=== PATIENT | female | born 1990 | race Hispanic/Latino ===

== ENCOUNTER 2017-06-16 08:15 | Emergency (ER) | payer SELFPAY ==
[2017-06-16 09:19] LABS: Bilirubin Negative (Negative); Blood, Urine Negative (Negative); Clarity CLOUDY (Clear); Glucose, Urine (Dipstick) Negative (Negative); Leukocyte Moderate (Negative); Nitrite Negative (Negative); Protein, Urine (Dipstick) 30 mg/dL (Neg-Trace); Specific Gravity, Urine 1.015 (1.002-1.036)
[2017-06-16 09:20] LABS: Bacteria/HPF 2+ HPF (None Seen); Hyaline Casts/LPF 0-3 HYALINE CAST LPF (0-3 Hyaline); Pregnancy Test - Urine (BHCG) Negative (Negative); Pregu Control Background? CLEAR/WHITE (CLR/WHITE); Pregu Control Bar Appear? YES (CONTROL BAR); Specific Gravity 1.015 (1.002-1.036); WBC/HPF 21-50 HPF (0-3)
[2017-06-16 09:32] LABS: RBC/HPF 0-3 HPF (0-3)
== END 2017-06-16 10:08 | disposition home or self-care (01) ==
LOC: ERS 08:15
DX: M54.5 Low back pain (principal); K21.9 Gastro-esophageal reflux disease without esophagitis; N39.0 Urinary tract infection, site not specified
CPT/HCPCS: 81003; 81015; 81025; 99283

== ENCOUNTER 2017-10-02 08:09 | Emergency (ER) | payer SELFPAY | END 2017-10-02 09:14 | disposition home or self-care (01) | LOC: ERS 08:09 | DX: M54.2 Cervicalgia (principal); M79.89 Other specified soft tissue disorders; M54.9 Dorsalgia, unspecified; M79.642 Pain in left hand; M79.641 Pain in right hand; E03.9 Hypothyroidism, unspecified; Z79.899 Other long term (current) drug therapy | CPT/HCPCS: 99283 ==

== ENCOUNTER 2018-08-30 19:58 | Day surgery (SDC) | payer OTHER ==
[2018-08-30 20:32] VITALS: BP 121/59; TEMP 98.3; BMI 49.1
[2018-08-30 21:13] LABS: Bilirubin Negative (Negative); Blood, Urine Negative (Negative); Clarity CLOUDY (Clear); Glucose, Urine (Dipstick) Negative (Negative); Leukocyte Moderate (Negative); Nitrite Negative (Negative); Protein, Urine (Dipstick) Negative (Neg-Trace); Specific Gravity, Urine 1.026 (1.002-1.036)
[2018-08-30 21:15] LABS: Bacteria/HPF 1+ HPF (None Seen); Pathc Cast-AUWi Flag 1.63 (0-2.49); WBC/HPF 21-50 HPF (0-3)
[2018-08-30 21:22] LABS: RBC/HPF 0-3 HPF (0-3)
[2018-08-30 21:23] LABS: Hyaline Casts/LPF NONE SEEN LPF (0-3 Hyaline)
[2018-08-30 21:36] LABS: FFN Internal QC Analyzer PASS (PASS); FFN Internal QC Cassette PASS (PASS); Fetal Fibronectin Negative (Negative)
--- NOTE | 2018-08-31 08:48 | SS ---
DATE OF ADMISSION: 08/30/2018 DATE OF DISCHARGE: 08/30/2018 REGULAR PHYSICIAN: Thu Arguello MD EVALUATING PHYSICIAN: Malik Ortiz MD CHIEF COMPLAINT: Irregular contractions at home. HISTORY OF PRESENT ILLNESS: Ms. Paige is a 28-year-old , G6, P4, AB1 with an estimated date of confinement of 11/01/2018, who presents complaining of irregular contractions throughout the day today. She denies vaginal bleeding or ruptured membranes. She also denies change in bowel or bladder habits. Her care has been with Dr. Arguello, and she denies complications. PAST OBSTETRICAL HISTORY: Includes four vaginal deliveries at term and one miscarriage. PAST MEDICAL HISTORY: Hypothyroidism. CURRENT MEDICATIONS: 1. vitamins. 2. Synthroid 150 mcg per day. ALLERGIES: NO KNOWN ALLERGIES. SOCIAL HISTORY: Denies tobacco, alcohol, or drug use. FAMILY HISTORY: Noncontributory. REVIEW OF SYSTEMS: Denies nausea, vomiting, fever, chills, vaginal bleeding, or ruptured membranes. PHYSICAL EXAMINATION: VITAL SIGNS: Blood pressure is 121/59. The remainder of her vital signs are stable. She is afebrile. GENERAL: She is pleasant. She is in no acute distress. ABDOMEN: Soft, nontender, and gravid. heart rate tracing is stable. No significant uterine contractions are seen. PELVIC: Shows the cervix to be closed with the presenting part high. LABORATORY DATA: Urinalysis returns with a specific gravity of 1.026. It is cloudy with moderate leukocytes, negative nitrites, negative protein, negative glucose, and trace ketones. Microscopic shows 1 to 3 rbc's, 21 to 50 wbc's with 4 to 6 squamous cells and 1+ bacteria. Her fibronectin is negative. ASSESSMENT: 1. 31-week intrauterine . 2. No evidence of labor. 3. Suspect urinary tract infection. PLAN: The patient will be discharged to home. She was told to push p.o. fluids at home and she was given a prescription for Keflex 500 mg one p.o. 4 times a day for a week. She voiced understanding of her discharge instructions and states that she has a followup appointment with Dr. Arguello in 2 weeks. Job ID: [id number]
== END 2018-08-30 22:06 | disposition home or self-care (01) ==
LOC: L&D/OP 19:58
PROVIDERS: ATTEND Family Medicine
DX: O47.03 False labor before 37 completed weeks of gestation, third trimester (principal); O99.283 Endocrine, nutritional and metabolic diseases complicating pregnancy, third trimester; E03.9 Hypothyroidism, unspecified; Z3A.31 31 weeks gestation of pregnancy; Z79.899 Other long term (current) drug therapy
CPT/HCPCS: 81001; 82731; 87086; 99284

== ENCOUNTER 2018-10-20 11:14 | Inpatient (IN) | payer OTHER ==
[~2018-10-20 11:14] MED LIST: Bupivacaine/Epinephrine 0.25% 30 ML VIAL ONE
[2018-10-20 11:45] VITALS: BMI 51.5
[2018-10-20] MEDS ORDERED: Ondansetron PF 4 MG/2 ML Vial IVP PRN ×2 (12:05→21:10)
[2018-10-20] MEDS ORDERED: HYDROcodone/Acetaminophen 5/325 mg Tablet PO PRN (12:05)
[2018-10-20] MEDS ORDERED: Ibuprofen 800 MG TAB PO PRN (12:05)
[2018-10-20] MEDS ORDERED: Promethazine HCl 25 MG/ML VIAL IM PRN ×2 (12:05→21:10)
[2018-10-20] MEDS ORDERED: Butorphanol Tartrate 1 MG/ML VIAL SLOW IVP PRN (12:05)
[2018-10-20] MEDS ORDERED: Lidocaine 1% (PF) 30 ML VIAL SC PRN (12:05)
[2018-10-20] MEDS ORDERED: Methylergonovine 0.2 MG/ML VIAL IM PRN (12:05)
[2018-10-20] MEDS ORDERED: Acetaminophen 500 MG TAB PO PRN (12:05)
[2018-10-20] MEDS ORDERED: Carboprost 250 MCG/ML AMP IM PRN (12:05)
[2018-10-20] MEDS ORDERED: Misoprostol 200 MCG TAB PR PRN (12:05)
[2018-10-20] MEDS ORDERED: NS / Oxytocin 40 units/1000ml 1,000 ML IV PRN (12:05)
[2018-10-20] MEDS ORDERED: Penicillin G Potassium 5 MILL.UNITS in Sodium Chloride 0.9% 100 ML IVPB SCH (12:15)
[2018-10-20] MEDS: Lactated Ringer's 1,000 ML IV SCH ×3 (12:22→20:55)
[2018-10-20] MEDS: NS w/ Oxytocin 10 units 500 ML IV SCH (12:23)
[2018-10-20 12:43] LABS: Hemoglobin 10.5 g/dL (12.0-16.0); Mean Corpuscular HGB CONC 33.2 g/dL (32.0-36.0); Mean Corpuscular Hemoglobin 25.9 pg (27.0-31.0); Mean Platelet Volume 8.1 fL (7.4-10.4); Platelet Count 243 thou/uL (130-400); Red Blood Cell (RBC) Count 4.05 mill/uL (4.20-5.40); White Blood Cell (WBC) Count 8.8 thou/uL (4.8-10.8)
[2018-10-20 13:05] LABS: ALT (SGPT) 15 U/L (8-55); AST (SGOT) 17 U/L (5-34); Albumin 3.6 g/dL (3.5-5.0); Alkaline Phosphatase 126 U/L (40-150); Anion Gap 12 mmol/L (10-20); BUN (Urea Nitrogen) 5 mg/dL (7.0-18.7); Bilirubin, Total 0.5 mg/dL (0.2-1.2); Calc. Creatinine Clearance 260 mL/min (70-130); Calcium 9.3 mg/dL (7.8-10.44); Carbon Dioxide 22 mmol/L (22-29); Chloride 105 mmol/L (98-107); Estimated GFR-MDRD Greater than 90; Globulin 3.3 g/dL (2.4-3.5); Glucose 75 mg/dL (70-105); Potassium 4.1 mmol/L (3.5-5.1); Protein, Total 6.9 g/dL (6.0-8.3); Sodium 135 mmol/L (136-145)
[2018-10-20 13:23] LABS: Syphilis Antibody Nonreactive (Nonreactive); Syphilis Antibody Index 0.04 S/CO (<1.00 Non-Reactive)
[2018-10-20 13:24] LABS: HBSAg Index 0.26 S/CO (0-0.99); Hep B Surf Ag Non-Reactive S/CO (NonReactive)
--- NOTE | 2018-10-20 15:36 | PDOC.LDHP ---
Labor and Delivery H&P Chief complaint: other (Elevated BP in office, IOL) HPI: 28 yo scheduled for IOL at 39 weeks next week presented tot office for routine OB F/U and found to have elevated BP. 140's/90's. Given term gestation we decided to induce her labor and she was sent to L&D for pitocin. Current gestational age (weeks): 38 Due date: 11/01/18 Dating criteria: last menstrual period Grav: 6 Para: 4 Current complications: gestational hypertension Abnormal US findings: No Past Medical History: Hypothyroidism - on levothyroxine 150mcg daily Current medications: pre- vitamins Previous surgical history: cholecystectomy (2013) Allergies/Adverse Reactions: Allergies Allergy/AdvReac Type Severity Reaction Status Date / Time No Known Allergies Allergy Verified 10/20/18 11:38 Social history: none - Physical Exam Vital signs reviewed and normal: yes General: NAD, resting Heart: RRR Lungs: CTAB Abdomen: NTTP Extremeties: trace edema FHT: category 2, variable decelerations, variability present - Vaginal Exam cm dilated: 1 Effacement: 25% Station: -2 - OB Labs Blood type: O RH: positive Antibody Screen: negative HIV: negative RPR: negative HEPSAg: negative 1 hour GCT: positive 3 hour GTT: 79/144/111/101 GBS: positive Urine drug screen: not done Rubella: immune - Assessment L&D Assessment: medically indicated induction (Elevated BP, 1+ proteinuria - mild preeclampsia at term.) - Plan Plan: admit to L&D, GBS antibiotic prophylaxis, informed consent obtained, anesthesia consult for pain management
[2018-10-20] MEDS ORDERED: Magnesium Sulfate 20 gm/500 ml 20 GM/500 ML BAG ONE (15:51)
--- NOTE | 2018-10-20 15:52 | PDOC.EVN ---
Event Note - Event Note Event Note: Called by RN for FHT decelerations. Initially started pitocin at 2 units and was kamila every 2-3 minutes. Began having late decelerations, some deep to 90's. Moderate variability throughout. Pitocin was stopped and patient repositioned and IV fluid bolus given and O2 applied. Decelerations became less frequent but not fully resolved. Now more variable in nature. No longer kamila. Since unable to tolerate pitocin at this time we will attempt balloon dilation - Cook's balloon placed without complication. FHT after placement 150, moderate variability, Category II, no accelerations and rare variable decels. BP remains in mild range - no severe measurements at this time. We also discussed the possibility of needing if FHT unable to tolerate labor. Pt does not want that if at all avoidable. We discussed that we will try the balloon but if baby does not tolerate then will proceed with C/ S at that time. Currently FHT category II. While I was here to see the patient her blood pressure became elevated into the severe range - started magnesium per protocol. Last BP 178/85.
[2018-10-20] MEDS: Penicillin G 2.5 MILL.units 2.5 MILL.UNITS in Premix Bag 1 BAG IVPB SCH ×2 (16:35→20:27)
[2018-10-20] MEDS ORDERED: Calcium Gluc 4.6 MEQ/10 ML (100 MG/ML) SLOW IVP PRN (19:13)
[2018-10-20] MEDS: Labetalol HCl 100 MG/20 ML VIAL SLOW IVP PRN (19:21)
[2018-10-20] MEDS ORDERED: Magnesium Sulfate 20 GM/WATER 500 ML BAG IVPB SCH (19:30)
--- NOTE | 2018-10-20 19:31 | PDOC.EVN ---
Event Note - Event Note Event Note: BP continues to be high despite magnesium. Labetolol 20mg IV PRN for SBP>170 or DBP>110. Patient requesting epidural. [place] not tracing. FHT 150, moderate variability, some accels, variable decels periodically - category II. SVE: -, unable to assess station due to cooks balloon in place. Proceed with epidural.
[2018-10-20] MEDS ORDERED: Fentanyl 4 mcg/Bup 0.1% Cadd 100 ML ONE (19:33)
[2018-10-20] MEDS ORDERED: Acetaminophen 325 MG TAB PO PRN (21:10)
[2018-10-20] MEDS ORDERED: Lactated Ringer's 500 ML IV PRN (21:10)
[2018-10-20] MEDS ORDERED: Naloxone HCl 0.4 mg/ml Vial IVP PRN ×2 (21:10)
[2018-10-20] MEDS ORDERED: diphenhydrAMINE 50 MG/ML VIAL IVP PRN (21:10)
[2018-10-20] MEDS ORDERED: ePHEDrine/0.9% NaCl/PF SYRINGE 50 mg/10 ml SLOW IVP PRN (21:10)
[2018-10-20] MEDS ORDERED: Communication Order-Pharmacy FS SCH (21:15)
[2018-10-20] MEDS ORDERED: Fentanyl 4 mcg/Bupivacaine 0.1% Cassette 100 ML EPIDURAL SCH (21:15)
[2018-10-21] MEDS: Penicillin G 2.5 MILL.units 2.5 MILL.UNITS in Premix Bag 1 BAG IVPB SCH ×4 (00:59→14:31)
[2018-10-21] MEDS: Magnesium Sulfate 20 gm/500 ml 20 GM/500 ML BAG IVPB SCH ×3 (01:11→22:12)
[2018-10-21] MEDS ORDERED: Fentanyl 4 mcg/Bup 0.1% Cadd 100 ML ONE (05:18)
[2018-10-21] MEDS: Labetalol HCl 100 MG/20 ML VIAL SLOW IVP PRN (08:15)
[2018-10-21] MEDS: NS w/ Oxytocin 10 units 500 ML IV SCH (09:00)
[2018-10-21] MEDS ORDERED: Bicitra 30 ML UDCUP ONE (09:24)
[2018-10-21] MEDS ORDERED: Azithromycin 500 MG in Sodium Chloride 0.9% 250 ML 250 ML IVPB SCH (10:00)
[2018-10-21] MEDS ORDERED: Lidocaine 2% MPF 10 ML AMP (For Epidural Use) ONE (10:01)
[2018-10-21] MEDS ORDERED: Fentanyl 100 MCG/2 ML VIAL ONE (10:01)
--- NOTE | 2018-10-21 10:01 | PDOC.EVN ---
Event Note - Event Note Event Note: This AM after consultation with Dr. Bangura we attempted to restart pitocin. SVE at that time was /-2. We discussed iwth the patient that there was a possibility that her baby would not tolerate what was essentially a contraction stress test and that we would proceed with at that time. After starting pitocin the baby began having recurrent late decelerations. At that time, in consult with Dr. Bangura, decision was made to proceed with primary C/ S for distress, intolerance to labor. I came to L&D and discussed with the patient and she understands and agrees with the plan. Anesthesia notified.
[2018-10-21] MEDS ORDERED: Oxytocin 10 UNITS/ML VIAL ONE ×2 (10:37→11:07)
[2018-10-21] MEDS ORDERED: MORPHINE 5 MG/10 ML PF VIAL ONE (10:47)
[2018-10-21 10:58] LABS: Actual Bicarbonate (HCO3a) 24.9 mEq/L (22-28); Analyzer IN Cardio OR; Base Excess (BEa) -3.6 mEq/L (-2.0 to +3.0)
[2018-10-21] MEDS ORDERED: Ketorolac Tromethamine 30 MG/ML VIAL IVP PRN (11:02)
[2018-10-21] MEDS ORDERED: Naloxone HCl 0.4 mg/ml Vial IVP PRN ×2 (11:02)
[2018-10-21] MEDS ORDERED: Naloxone HCl 0.4 mg/ml Vial IV PRN (11:02)
[2018-10-21] MEDS ORDERED: Ondansetron HCl/PF 4 MG/2 ML Vial IVP PRN (11:02)
[2018-10-21] MEDS ORDERED: HYDROmorphone 2 MG/ML VIAL SLOW IVP PRN (11:02)
[2018-10-21] MEDS ORDERED: Ondansetron PF 4 MG/2 ML Vial IVP PRN ×2 (11:02→14:37)
[2018-10-21] MEDS ORDERED: L&D-Morphine 4 MG/ML VIAL SLOW IVP PRN (11:02)
[2018-10-21] MEDS ORDERED: Promethazine HCl 25 MG/ML VIAL IM PRN (11:02)
[2018-10-21] MEDS ORDERED: diphenhydrAMINE 50 MG/ML VIAL IVP PRN (11:02)
[2018-10-21] MEDS ORDERED: Meperidine HCl/PF 25 MG/ML VIAL SLOW IVP PRN (11:02)
[2018-10-21] MEDS ORDERED: Promethazine HCl 25 MG SUPP PR PRN (11:02)
[2018-10-21] MEDS ORDERED: Communication Order-Pharmacy FS SCH (11:15)
[2018-10-21] MEDS ORDERED: Ketorolac Tromethamine 30 MG/ML VIAL IVP SCH (11:15)
[2018-10-21] MEDS ORDERED: Ketorolac Tromethamine 30 MG/ML VIAL ONE (13:41)
[2018-10-21] MEDS ORDERED: Metoclopramide HCl 10 MG/2 ML VIAL ONE (13:41)
[2018-10-21] MEDS ORDERED: Labetalol HCl 100 MG/20 ML VIAL ONE (13:41)
[2018-10-21] MEDS ORDERED: Ondansetron PF 4 MG/2 ML Vial ONE (13:41)
[2018-10-21] MEDS ORDERED: Lidocaine 2% PF 5 ML VIAL ONE (13:41)
[2018-10-21] MEDS ORDERED: Lanolin Ointment 7 GM TUBE TOP PRN (14:37)
[2018-10-21] MEDS ORDERED: Calcium Gluconate 4.6 MEQ in Sodium Chloride 0.9% 100 ML IVPB PRN (14:37)
[2018-10-21] MEDS ORDERED: diphenhydrAMINE 25 MG CAP PO PRN (14:37)
[2018-10-21] MEDS ORDERED: Bisacodyl 10 MG SUPP PR PRN (14:37)
[2018-10-21] MEDS ORDERED: Adacel (T-DAP) 0.5 ML SYRINGE IM ONE (14:37)
[2018-10-21] MEDS ORDERED: Simethicone Chewable 80 MG TAB PO PRN (14:37)
[2018-10-21] MEDS: Lactated Ringer's 1,000 ML IV SCH (14:47)
[2018-10-21] MEDS ORDERED: HYDROcodone/Acetaminophen 5/325 mg Tablet PO PRN (15:30)
[2018-10-21] MEDS: HYDROcodone/Acetaminophen 5/325 mg Tablet PO PRN (15:40)
--- NOTE | 2018-10-21 20:10 | OP ---
DATE OF PROCEDURE: 10/20/2018 PREOPERATIVE DIAGNOSES: 1. Non-reassuring status. 2. Intrauterine at 38 weeks. 3. Preeclampsia. POSTOPERATIVE DIAGNOSES: 1. Non-reassuring status. 2. Intrauterine at 38 weeks. 3. Preeclampsia. PROCEDURE PERFORMED: Primary low transverse section. ANESTHESIA: Epidural. QUANTITATIVE BLOOD LOSS: 300 mL. COMPLICATIONS: None. CONDITION: Stable to recovery room. SPECIMENS: Placenta to pathology and cord blood for blood gas analysis. FINDINGS: Female infant delivered at 10:34 a.m. with Apgars of 8 and 10 and a weight of 2526 g. DESCRIPTION OF PROCEDURE: The patient is a 28-year-old multiparous female with an intrauterine at 38 weeks and 3 days, who was admitted by her primary OB, Dr. Thu Arguello, for induction of labor secondary to preeclampsia. The patient was started on Pitocin for induction of labor and appeared to be intolerant having repetitive late decelerations. Followed by discontinuation of the Pitocin, the patient received a Brambila bulb with Cook balloon to assist with the induction process. This morning, the Pitocin was started once again and again the fetus immediately started having late decelerations with every contraction. Given these findings, recommendations were made to the patient and family for primary as the fetus will not tolerate labor. With her permission, we proceeded with a primary section. The patient was placed in dorsal supine position in the leftward tilt. She was prepared and draped in normal sterile fashion. After ensuring that the epidural anesthetic was working properly, surgery was begun with a Pfannenstiel incision. This was carried down to the level of the fascia. Fascia was incised and extended laterally with Briseno scissors. The fascia was then sharply and bluntly dissected off the underlying rectus muscles both superiorly and inferiorly. The rectus muscles were bluntly dissected down the midline and the peritoneum was entered into bluntly. This defect was extended laterally in blunt manner. Uterus was identified to be free of any adhesions. The bladder and lower uterine segment were extremely deep in the pelvis, and a hysterotomy was created in the mid region of the uterus, making the incision much thicker than usual. The head was present at the site of the incision and was delivered to sterile field without complication. The cord was clamped and cut, and the infant was handed off to waiting attendant. The cord segment was cut for blood gas analysis and the placenta was then delivered with uterine massage. Of note, the placenta was noted to be quite small with a small cord consistent with the small baby. The uterus was then cleared of all clot and debris and given the thickness of the uterine wall, it was closed in two layers with underlying locking layer with #1 PDS followed by an imbricating layer closing the upper portion of the hysterotomy and the serosa. Good hemostasis was noted. Of note, there was less than average blood loss. The ovaries and tubes were inspected. The right ovary appeared to be about half the size of the left ovary. Otherwise, both appeared normal. With re-inspection of the hysterotomy and noted hemostasis, the Kurtis O, which had been used for retraction, was removed and the fascia was then closed in a running fashion with 0 PDS. The subcutaneous fat was then closed with plain gut in 2 layers and the skin was closed with 4-0 Monocryl in a running fashion. The patient was then taken to recovery room in stable condition. Job ID: [id number]
[2018-10-22] MEDS ORDERED: Ketorolac Tromethamine 30 MG/ML VIAL ONE (05:41)
[2018-10-22] MEDS: Docusate Calcium (SURFAK) 240 MG CAP PO SCH ×3 (05:45→19:48)
[2018-10-22] MEDS: Ferrous Sulfate 325 MG TAB PO SCH ×3 (05:45→19:46)
[2018-10-22] MEDS: Magnesium Sulfate 20 gm/500 ml 20 GM/500 ML BAG IVPB SCH (09:24)
[2018-10-22 09:42] LABS: Hemoglobin 9.4 g/dL (12.0-16.0); Mean Corpuscular HGB CONC 34.1 g/dL (32.0-36.0); Mean Corpuscular Hemoglobin 26.5 pg (27.0-31.0); Mean Corpuscular Volume 77.6 fL (78.0-98.0); Mean Platelet Volume 7.6 fL (7.4-10.4); Platelet Count 230 thou/uL (130-400); RBC Distribution Width 14.4 % (11.5-14.5); Red Blood Cell (RBC) Count 3.55 mill/uL (4.20-5.40)
[2018-10-22] MEDS: HYDROcodone/Acetaminophen 5/325 mg Tablet PO PRN ×2 (12:48→19:46)
--- NOTE | 2018-10-22 21:23 | PDOC.PP ---
Post Progress Note Post Day #: 1 Subjective: Doing well. Still on magnesium. Slept some. Not ambulatory yet. Szymanski still in place. PO intake tolerated: yes Flatus: no Ambulation: no Vital Signs (12 hours) Temp Pulse Resp BP 10/22/18 15:45 98.1 F 77 18 127/58 L Weight Weight 273 lb - Physical Examination General: NAD Cardiovascular: no m/r/g, RRR Respiratory: clear to auscultation bilaterally, non-labored breathing Abdominal: + bowel sounds, lochia, no distention, appropriately TTP Skin: CS incision dry & intact Neurological: no gross focal deficits Result Diagrams: 10/22/18 09:32 10/20/18 12:34 Additional Labs: Post Labs Blood Type O POSITIVE 10/20/18 12:34 Hep Bs Antigen Non-Reactive S/CO (NonReactive) 10/20/18 12:33 (1) delivery delivered Code(s): O82 - ENCOUNTER FOR DELIVERY WITHOUT INDICATION Status: Acute (2) Severe pre-eclampsia Code(s): O14.10 - SEVERE PRE-ECLAMPSIA, UNSPECIFIED TRIMESTER Status: Acute - Assessment/Plan Routine post-op care Continue magnesium for 24 hours - september D/C after 1030 AM today BP coming down and urine output increasing D/C szymanski later today Ambulate Advance diet
[2018-10-23] MEDS: Docusate Calcium (SURFAK) 240 MG CAP PO SCH ×2 (09:27→21:22)
[2018-10-23] MEDS: Ferrous Sulfate 325 MG TAB PO SCH ×2 (09:27→21:23)
--- NOTE | 2018-10-23 15:42 | PDOC.PP ---
Post Progress Note Post Day #: 2 Subjective: Doing well. Mom is ready for D/C but baby is high intermediate risk for bilirubin - will hold off on D/C until tomorrow so we can recheck baby's bili. PO intake tolerated: yes Flatus: yes Ambulation: yes Vital Signs (12 hours) Temp Pulse Resp BP Pulse Ox 10/23/18 11:00 98.3 F 80 18 144/76 H 10/23/18 08:00 98.2 F 85 16 135/76 98 10/23/18 03:45 98.1 F 84 18 143/73 H Weight Weight 273 lb - Physical Examination General: NAD Cardiovascular: no m/r/g, RRR Respiratory: clear to auscultation bilaterally, non-labored breathing Abdominal: + bowel sounds, lochia, no distention, appropriately TTP Skin: CS incision dry & intact Psychiatric: A&Ox3 Result Diagrams: 10/22/18 09:32 10/20/18 12:34 Additional Labs: Post Labs Blood Type O POSITIVE 10/20/18 12:34 Hep Bs Antigen Non-Reactive S/CO (NonReactive) 10/20/18 12:33 (1) delivery delivered Code(s): O82 - ENCOUNTER FOR DELIVERY WITHOUT INDICATION Status: Acute (2) Severe pre-eclampsia Code(s): O14.10 - SEVERE PRE-ECLAMPSIA, UNSPECIFIED TRIMESTER Status: Acute - Assessment/Plan BP normalized - no need for Rx at D/C Doing well post-op Bottlefeeding Likely D/C in the AM F/U in 2 weeks
[2018-10-23] MEDS: HYDROcodone/Acetaminophen 5/325 mg Tablet PO PRN (18:54)
[2018-10-24] MEDS: HYDROcodone/Acetaminophen 5/325 mg Tablet PO PRN (05:20)
--- NOTE | 2018-10-24 05:35 | PDOC.PP ---
Post Progress Note Post Day #: 3 Subjective: Mom doing well, baby went to NICU overnight for low glucose and seizure like activity. PO intake tolerated: yes Flatus: yes Ambulation: yes Vital Signs (12 hours) Temp Pulse Resp BP 10/24/18 00:10 98.6 F 81 18 138/72 10/23/18 20:55 20 Weight Weight 273 lb - Physical Examination General: NAD Cardiovascular: no m/r/g, RRR Respiratory: clear to auscultation bilaterally, non-labored breathing Abdominal: + bowel sounds, lochia, no distention, appropriately TTP Skin: CS incision dry & intact, no rash Result Diagrams: 10/22/18 09:32 10/20/18 12:34 Additional Labs: Post Labs Blood Type O POSITIVE 10/20/18 12:34 Hep Bs Antigen Non-Reactive S/CO (NonReactive) 10/20/18 12:33 (1) delivery delivered Code(s): O82 - ENCOUNTER FOR DELIVERY WITHOUT INDICATION Status: Acute (2) Severe pre-eclampsia Code(s): O14.10 - SEVERE PRE-ECLAMPSIA, UNSPECIFIED TRIMESTER Status: Acute - Assessment/Plan Doing well Able to D/C today baby will need to stay in NICU until beka releases B&B if mom wants
[2018-10-24] MEDS ORDERED: Levothyroxine 150 MCG TAB PO SCH (06:00)
[2018-10-24 08:03] VITALS: BP 137/76; TEMP 97.9
[2018-10-24] MEDS: Docusate Calcium (SURFAK) 240 MG CAP PO SCH (09:13)
[2018-10-24] MEDS: Ferrous Sulfate 325 MG TAB PO SCH (09:13)
== END 2018-10-24 11:20 | disposition home or self-care (01) | DRG 788 ==
LOC: L&D 11:14 → 3SE 10-22 12:07
PROVIDERS: ADMIT Family Medicine; ATTEND Family Medicine
PROC: 3E033VJ Introduction of Other Hormone into Peripheral Vein, Percutaneous Approach (ICD-10-PCS; 2018-10-20)
PROC: 10D00Z1 Extraction of Products of Conception, Low, Open Approach (ICD-10-PCS; principal; 2018-10-21)
DX: O13.4 Gestational [pregnancy-induced] hypertension without significant proteinuria, complicating childbirth (principal); O14.14 Severe pre-eclampsia complicating childbirth; O99.824 Streptococcus B carrier state complicating childbirth; O76 Abnormality in fetal heart rate and rhythm complicating labor and delivery; O99.284 Endocrine, nutritional and metabolic diseases complicating childbirth; E03.9 Hypothyroidism, unspecified; Z37.0 Single live birth; Z3A.39 39 weeks gestation of pregnancy
CPT/HCPCS: 36415; 51702; 80053; 82805; 83735; 85027; 86780; 86850; 86900; 86901; 87340; 88307; C1726; J0456; J0690; J1885; J2001; J2270; J2405; J2540; J2590; J2765; J3010; J3475; J3490; J7050

== ENCOUNTER 2022-08-18 11:12 | Emergency (ER) | payer OTHER, SELFPAY ==
[2022-08-18] MEDS ORDERED: Famotidine 20 MG TAB ONE (11:47)
[2022-08-18] MEDS ORDERED: EPINEPHrine 1 MG/ML VIAL ONE (11:47)
[2022-08-18 12:04] LABS: #Eosinphils 0.2 thou/uL (0.0-0.7); #Lymphocytes 3.4 thou/uL (1.20-3.40); #Monocytes 0.7 thou/uL (0.11-0.59); #Neutrophils 6.2 thou/uL (1.40-6.50); %Basophils 0.2 % (0.0-1.0); %Lymphocytes 32.1 % (21.0-51.0); %Monocytes 6.8 % (0.0-10.0); Hemoglobin 11.9 g/dL (12.0-16.0); Mean Corpuscular HGB CONC 33.1 g/dL (32.0-36.0); Mean Corpuscular Hemoglobin 26.4 pg (27.0-31.0); Mean Corpuscular Volume 79.9 fl (78.0-98.0); Mean Platelet Volume 8.1 fL (7.4-10.4); Platelet Count 126 10x3/uL (130-400); RBC Distribution Width 13.6 % (11.5-14.5); Red Blood Cell (RBC) Count 4.51 mill/uL (4.20-5.40); White Blood Cell (WBC) Count 10.5 10x3/uL (4.8-10.8)
[2022-08-18 12:29] LABS: ALT (SGPT) 38 U/L (8-55); AST (SGOT) 25 U/L (5-34); Albumin 4.2 g/dL (3.5-5.0); Alkaline Phosphatase 90 U/L (40-110); Anion Gap 10 mmol/L (10-20); BUN (Urea Nitrogen) 17 mg/dL (7.0-18.7); Bilirubin, Total 0.5 mg/dL (0.2-1.2); Calc. Creatinine Clearance 0 mL/min (70-130); Calcium 9.2 mg/dL (7.8-10.44); Carbon Dioxide 28 mmol/L (22-29); Chloride 105 mmol/L (98-107); Estimated GFR 112; Globulin 3.7 g/dL (2.4-3.5); Glucose 99 mg/dL (70-105); Potassium 3.7 mmol/L (3.5-5.1); Protein, Total 7.9 g/dL (6.0-8.3); Sodium 139 mmol/L (136-145)
[2022-08-18 12:40] LABS: Bilirubin Negative (Negative); Blood, Urine Trace (Negative); Clarity Clear (Clear); Glucose, Urine (Dipstick) Normal (Negative); Ketone, Urine Negative (Negative); Leukocyte 250 Leu/uL (Negative); Nitrite Negative (Negative); Protein, Urine (Dipstick) 10 mg/dL (Neg-Trace); Specific Gravity, Urine 1.031 (1.002-1.036); WBC/HPF 0-3 HPF (0-3); pH, Urine 5.5 (5.0-9.0)
[2022-08-18 12:45] LABS: Bacteria/HPF Rare-Few HPF (None Seen); Pregnancy Test - Urine (BHCG) Negative (Negative); Pregu Control Background? CLEAR/WHITE (CLR/WHITE); Pregu Control Bar Appear? YES (CONTROL BAR); Specific Gravity 1.031 (1.002-1.036)
[2022-08-18] MEDS ORDERED: Ketorolac Tromethamine 30 MG/ML VIAL ONE (13:43)
[2022-08-18] MEDS ORDERED: hydrOXYzine 25 MG TAB ONE (13:43)
[2022-08-18] MEDS ORDERED: cefTRIAXone (ROCEPHIN) 500 MG VIAL ONE (15:39)
[2022-08-18] MEDS ORDERED: Lidocaine 1% MPF 2 ML VIAL ONE (15:40)
[2022-08-19 13:30] LABS: Chlam.trachomatis by PCR,Urine Not Detected (NotDetected); GC N.gonorrhoeae PCR,UrineVOID Not Detected (NotDetected)
== END 2022-08-18 18:00 | disposition home or self-care (01) ==
LOC: ERS 11:12
DX: N73.9 Female pelvic inflammatory disease, unspecified (principal); R21 Rash and other nonspecific skin eruption; E03.9 Hypothyroidism, unspecified
CPT/HCPCS: 36415; 80053; 81003; 81015; 81025; 85025; 87480; 87491; 87510; 87591; 87660; 96372; 99283; J0171; J0696; J1885

== ENCOUNTER 2022-08-26 17:49 | Emergency (ER) | payer SELFPAY ==
[2022-08-26] MEDS ORDERED: Dexamethasone 4 mg/ml Vial ONE (19:15)
[2022-08-26 19:16] LABS: Hemoglobin 12.9 g/dL (12.0-16.0); Mean Corpuscular HGB CONC 32.9 g/dL (32.0-36.0); Mean Corpuscular Volume 79.1 fl (78.0-98.0); Mean Platelet Volume 7.4 fL (7.4-10.4); Platelet Count 228 10x3/uL (130-400); RBC Distribution Width 13.4 % (11.5-14.5); Red Blood Cell (RBC) Count 4.95 mill/uL (4.20-5.40); White Blood Cell (WBC) Count 14.1 10x3/uL (4.8-10.8)
[2022-08-26 19:29] LABS: Anion Gap 16 mmol/L (10-20); BUN (Urea Nitrogen) 9 mg/dL (7.0-18.7); Calc. Creatinine Clearance 0 mL/min (70-130); Calcium 9.3 mg/dL (7.8-10.44); Carbon Dioxide 21 mmol/L (22-29); Chloride 99 mmol/L (98-107); Estimated GFR 102; Glucose 142 mg/dL (70-105); Potassium 3.7 mmol/L (3.5-5.1); Sodium 132 mmol/L (136-145)
[2022-08-26 19:38] LABS: Band 6 % (5-11); Eosinophils 2 % (0-10); Lymphocytes 29 % (21-51); MDiff Complete? YES; Monocytes 4 % (0-10); Neutrophil 57 % (42-75); Platelet Morphology Comment Appears Adequate; RBC Morphology Normal; Reactive Lymphocytes 1 % (0-10)
[2022-08-26 20:08] LABS: Prothrombin Time 13.7 sec (12.0-14.7)
[2022-08-26 20:09] LABS: PTT 29.6 sec (22.9-36.1)
[2022-08-26] MEDS ORDERED: LORazepam 2 MG/ML SYR.(CARPUJECT) ONE (20:18)
[2022-08-26] MEDS ORDERED: Ondansetron PF 4 MG/2 ML Vial ONE ×2 (20:18→20:23)
[2022-08-26] MEDS ORDERED: Ketorolac Tromethamine 30 MG/ML VIAL ONE (20:56)
== END 2022-08-26 22:52 | disposition home or self-care (01) ==
LOC: ERS 17:49
DX: L50.9 Urticaria, unspecified (principal); M13.0 Polyarthritis, unspecified; E03.9 Hypothyroidism, unspecified
CPT/HCPCS: 36415; 80048; 83605; 85025; 85610; 85730; 93005; 94760; 96372; 96374; 96375; J1100; J1885; J2060; J2405

== ENCOUNTER 2022-09-23 16:34 | Inpatient (IN) | payer SELFPAY ==
[~2022-09-23 16:34] MED LIST changes: -Bupivacaine/Epinephrine 0.25% 30 ML VIAL ONE; +Iopamidol-370 76% 500 ML MDV (1 ML CHARGE) ONE
[2022-09-23 17:39] LABS: Hemoglobin 6.8 g/dL (12.0-16.0); Mean Corpuscular HGB CONC 34.8 g/dL (32.0-36.0); Mean Corpuscular Hemoglobin 26.4 pg (27.0-31.0); Mean Corpuscular Volume 75.9 fl (78.0-98.0); Mean Platelet Volume 7.8 fL (7.4-10.4); Platelet Count 111 10x3/uL (130-400); RBC Distribution Width 15.5 % (11.5-14.5); Red Blood Cell (RBC) Count 2.58 mill/uL (4.20-5.40); White Blood Cell (WBC) Count 5.1 10x3/uL (4.8-10.8)
[2022-09-23 18:04] LABS: ALT (SGPT) 22 U/L (8-55); AST (SGOT) 69 U/L (5-34); Albumin 4.1 g/dL (3.5-5.0); Alkaline Phosphatase 66 U/L (40-110); Anion Gap 12 mmol/L (10-20); BHCG - Serum Negative (NEGATIVE); BUN (Urea Nitrogen) 10 mg/dL (7.0-18.7); Bilirubin, Total 3.2 mg/dL (0.2-1.2); Calc. Creatinine Clearance 0 mL/min (70-130); Carbon Dioxide 26 mmol/L (22-29); Chloride 101 mmol/L (98-107); Estimated GFR 110; Globulin 4.1 g/dL (2.4-3.5); Glucose 95 mg/dL (70-105); Lipase 14 U/L (8-78); Potassium 3.7 mmol/L (3.5-5.1); Pregs Control Background? CLEAR/WHITE (CLR/WHITE); Pregs Control Bar Appear? YES (CONTROL BAR); Protein, Total 8.2 g/dL (6.0-8.3); Sodium 135 mmol/L (136-145)
[2022-09-23 18:25] LABS: Anisocytosis SLIGHT = 6-15 cells (100X) (0-5/hpf); Band 18 % (5-11); Eosinophils 4 % (0-10); Hypochromia SLIGHT = 6-15 cells (100X) (0-5/hpf); Lymphocytes 23 % (21-51); MDiff Complete? YES; Metamyelocyte 2 % (0-0); Microcytosis SLIGHT = 6-15 cells (100X) (0-5/hpf); Monocytes 9 % (0-10); Myelocyte 1 % (0-0); Neutrophil 40 % (42-75); Platelet Morphology Comment Appears Decreased; Polychromasia MODERATE = 3-4 cells (100X) (0-2/hpf); Reactive Lymphocytes 2 % (0-10)
[2022-09-23 18:59] LABS: Bacteria/HPF 1+ HPF (None Seen); Bilirubin Negative (Negative); Blood, Urine Negative (Negative); Clarity Clear (Clear); Glucose, Urine (Dipstick) Normal (Negative); Ketone, Urine Negative (Negative); Leukocyte 25 Leu/uL (Negative); Nitrite Negative (Negative); Protein, Urine (Dipstick) Negative (Neg-Trace); RBC/HPF 0-3 HPF (0-3); Specific Gravity, Urine 1.016 (1.002-1.036); Squamous Epithelial 0-3 HPF (0-3); pH, Urine 5.5 (5.0-9.0)
[2022-09-23 20:25] LABS: Magnesium 2.1 mg/dL (1.6-2.6)
[2022-09-23 20:33] LABS: SARS-CoV-2 NAA Rapid Test DETECTED (NotDetected)
[2022-09-23 22:38] LABS: Reticulocyte Count 3.1 % (0.5-1.5)
[2022-09-23 23:21] LABS: Iron 169 ug/dL (50-170); Iron Binding Capacity, Total 353 mcg/dL (265-497)
[2022-09-23 23:22] LABS: Bilirubin, Direct 0.8 mg/dL (0.1-0.3)
[2022-09-24 00:28] VITALS: BMI 47.9
[2022-09-24] MEDS: Iron, Sodium Ferric Gluconate 125 MG in Sodium Chloride 0.9% 100 ML IVPB SCH (00:48)
[2022-09-24] MEDS: Ondansetron PF 4 MG/2 ML Vial IVP PRN ×2 (00:48→10:05)
[2022-09-24 07:44] LABS: Hemoglobin 7.2 g/dL (12.0-16.0); Mean Corpuscular HGB CONC 33.7 g/dL (32.0-36.0); Mean Corpuscular Hemoglobin 25.5 pg (27.0-31.0); Mean Corpuscular Volume 75.7 fl (78.0-98.0); Mean Platelet Volume 8.4 fL (7.4-10.4); Platelet Count 122 10x3/uL (130-400); RBC Distribution Width 15.3 % (11.5-14.5); Red Blood Cell (RBC) Count 2.81 mill/uL (4.20-5.40); White Blood Cell (WBC) Count 4.8 10x3/uL (4.8-10.8)
[2022-09-24 08:01] LABS: Anion Gap 15 mmol/L (10-20); BUN (Urea Nitrogen) 11 mg/dL (7.0-18.7); Calc. Creatinine Clearance 217 mL/min (70-130); Carbon Dioxide 24 mmol/L (22-29); Chloride 101 mmol/L (98-107); Estimated GFR 118; Glucose 103 mg/dL (70-105); Potassium 3.5 mmol/L (3.5-5.1); Sodium 136 mmol/L (136-145)
[2022-09-24 08:56] LABS: Band 20 % (5-11); Eosinophils 4 % (0-10); Lymphocytes 27 % (21-51); MDiff Complete? YES; Microcytosis SLIGHT = 6-15 cells (100X) (0-5/hpf); Monocytes 11 % (0-10); Neutrophil 34 % (42-75); Platelet Morphology Comment Appears Decreased; Polychromasia SLIGHT = 2-3 cells (100X) (0-2/hpf); Reactive Lymphocytes 2 % (0-10)
[2022-09-24] MEDS: Famotidine/PF 20 mg/2ml Vial SLOW IVP SCH ×2 (10:18→21:14)
[2022-09-24 10:37] LABS: INR-International Normal Ratio 1.1; Prothrombin Time 14.3 sec (12.0-14.7)
[2022-09-24 10:38] LABS: PTT 34.7 sec (22.9-36.1)
[2022-09-24 10:41] LABS: D-Dimer Test 2.59 *mcg/mL (0.27-0.43)
[2022-09-24] MEDS ORDERED: predniSONE 50 MG TAB PO SCH (11:00)
[2022-09-24 14:44] LABS: Ref Lab Test Ordered IL-2 /SOLUBLE CD25; Reference Lab Name LABCORP
[2022-09-24 14:47] LABS: Ref Lab Test Ordered IL-18/ IFN GAMMA
[2022-09-24 14:51] LABS: Reference Lab Name LABCORP
[2022-09-24 14:52] LABS: Ref Lab Test Ordered IL-8/ CXCL9
[2022-09-25] MEDS: Iron, Sodium Ferric Gluconate 125 MG in Sodium Chloride 0.9% 100 ML IVPB SCH (01:17)
[2022-09-25 06:37] LABS: ALT (SGPT) 20 U/L (8-55); AST (SGOT) 50 U/L (5-34); Alkaline Phosphatase 63 U/L (40-110); Anion Gap 13 mmol/L (10-20); BUN (Urea Nitrogen) 12 mg/dL (7.0-18.7); Calc. Creatinine Clearance 220 mL/min (70-130); Carbon Dioxide 25 mmol/L (22-29); Chloride 102 mmol/L (98-107); Estimated GFR 118; Glucose 133 mg/dL (70-105); Potassium 4.1 mmol/L (3.5-5.1); Sodium 136 mmol/L (136-145)
[2022-09-25 06:41] LABS: Anisocytosis SLIGHT = 6-15 cells (100X) (0-5/hpf); Band 12 % (5-11); Lymphocytes 18 % (21-51); MDiff Complete? YES; Mean Corpuscular HGB CONC 35.8 g/dL (32.0-36.0); Mean Corpuscular Volume 75.4 fl (78.0-98.0); Mean Platelet Volume 8.3 fL (7.4-10.4); Metamyelocyte 1 % (0-0); Monocytes 9 % (0-10); Myelocyte 1 % (0-0); Neutrophil 59 % (42-75); Platelet Count 127 10x3/uL (130-400); Platelet Morphology Comment Appears Decreased; RBC Distribution Width 14.8 % (11.5-14.5); Red Blood Cell (RBC) Count 2.23 mill/uL (4.20-5.40); White Blood Cell (WBC) Count 4.3 10x3/uL (4.8-10.8)
[2022-09-25] MEDS ORDERED: Ondansetron PF 4 MG/2 ML Vial IVP PRN (08:12)
[2022-09-25] MEDS ORDERED: predniSONE 20 MG TAB PO SCH (09:00)
[2022-09-25] MEDS: Famotidine/PF 20 mg/2ml Vial SLOW IVP SCH ×2 (09:32→20:09)
[2022-09-25] MEDS: predniSONE 20 MG TAB PO SCH ×2 (09:32→20:08)
[2022-09-25] MEDS ORDERED: Acetaminophen 500 MG TAB PO SCH (11:00)
[2022-09-25] MEDS ORDERED: diphenhydrAMINE 50 MG CAP PO SCH (11:00)
[2022-09-25] MEDS ORDERED: diphenhydrAMINE 50 MG CAP PO PRN (15:40)
[2022-09-25 18:42] LABS: Hemoglobin 7.1 g/dL (12.0-16.0); Platelet Count 157 10x3/uL (130-400)
[2022-09-26 06:04] LABS: #Lymphocytes 1.3 thou/uL (1.20-3.40); #Monocytes 0.6 thou/uL (0.11-0.59); #Neutrophils 3.9 thou/uL (1.40-6.50); %Basophils 0.2 % (0.0-1.0); %Eosinophils 0.5 % (0.0-10.0); %Lymphocytes 22.6 % (21.0-51.0); %Monocytes 10.3 % (0.0-10.0); %Neutrophils 66.4 % (42.0-75.0); Hemoglobin 7.3 g/dL (12.0-16.0); Mean Corpuscular HGB CONC 35.3 g/dL (32.0-36.0); Mean Corpuscular Hemoglobin 27.3 pg (27.0-31.0); Mean Corpuscular Volume 77.3 fl (78.0-98.0); Mean Platelet Volume 8.4 fL (7.4-10.4); Platelet Count 179 10x3/uL (130-400); RBC Distribution Width 14.4 % (11.5-14.5); Red Blood Cell (RBC) Count 2.68 mill/uL (4.20-5.40); White Blood Cell (WBC) Count 5.8 10x3/uL (4.8-10.8)
[2022-09-26 06:23] LABS: ALT (SGPT) 21 U/L (8-55); AST (SGOT) 39 U/L (5-34); Albumin 4.2 g/dL (3.5-5.0); Alkaline Phosphatase 67 U/L (40-110); Anion Gap 14 mmol/L (10-20); BUN (Urea Nitrogen) 14 mg/dL (7.0-18.7); Bilirubin, Total 2.2 mg/dL (0.2-1.2); Calc. Creatinine Clearance 214 mL/min (70-130); Calcium 9.2 mg/dL (7.8-10.44); Carbon Dioxide 26 mmol/L (22-29); Chloride 102 mmol/L (98-107); Estimated GFR 116; Globulin 4.1 g/dL (2.4-3.5); Glucose 148 mg/dL (70-105); Potassium 4.3 mmol/L (3.5-5.1); Protein, Total 8.3 g/dL (6.0-8.3); Sodium 138 mmol/L (136-145)
[2022-09-26] MEDS: Famotidine/PF 20 mg/2ml Vial SLOW IVP SCH ×2 (10:06→20:35)
[2022-09-26] MEDS: predniSONE 20 MG TAB PO SCH ×2 (10:06→20:34)
[2022-09-26] MEDS ORDERED: hydrOXYzine 25 MG TAB PO SCH (11:15)
[2022-09-26] MEDS ORDERED: Levothyroxine Sodium 125 MCG TAB PO SCH (11:30)
[2022-09-27] MEDS ORDERED: Acetaminophen 325 MG TAB PO PRN (05:15)
[2022-09-27 05:53] LABS: ALT (SGPT) 22 U/L (8-55); AST (SGOT) 32 U/L (5-34); Alkaline Phosphatase 73 U/L (40-110); Anion Gap 13 mmol/L (10-20); BUN (Urea Nitrogen) 14 mg/dL (7.0-18.7); Bilirubin, Total 1.3 mg/dL (0.2-1.2); Calc. Creatinine Clearance 214 mL/min (70-130); Carbon Dioxide 25 mmol/L (22-29); Chloride 103 mmol/L (98-107); Estimated GFR 116; Globulin 4.1 g/dL (2.4-3.5); Glucose 161 mg/dL (70-105); Protein, Total 8.1 g/dL (6.0-8.3); Sodium 136 mmol/L (136-145)
[2022-09-27 05:56] LABS: Hemoglobin 7.3 g/dL (12.0-16.0); Mean Corpuscular HGB CONC 32.5 g/dL (32.0-36.0); Mean Corpuscular Hemoglobin 25.4 pg (27.0-31.0); Mean Corpuscular Volume 77.9 fl (78.0-98.0); Mean Platelet Volume 8.7 fL (7.4-10.4); Platelet Count 211 10x3/uL (130-400); RBC Distribution Width 14.4 % (11.5-14.5); Red Blood Cell (RBC) Count 2.87 mill/uL (4.20-5.40)
[2022-09-27] MEDS ORDERED: Non-Formulary Item 1 EACH (Levothyroxine Sodium [Levothyroxine] 125 MCG Capsule) PO SCH (06:00)
[2022-09-27] MEDS ORDERED: Levothyroxine Sodium 125 MCG TAB PO SCH (06:00)
[2022-09-27] MEDS: predniSONE 20 MG TAB PO SCH (09:25)
[2022-09-27] MEDS: Famotidine/PF 20 mg/2ml Vial SLOW IVP SCH (09:25)
[2022-09-27 09:46] LABS: Band 12 % (5-11); Hypochromia SLIGHT = 6-15 cells (100X) (0-5/hpf); Lymphocytes 21 % (21-51); MDiff Complete? YES; Metamyelocyte 1 % (0-0); Microcytosis SLIGHT = 6-15 cells (100X) (0-5/hpf); Monocytes 4 % (0-10); Neutrophil 62 % (42-75); Platelet Morphology Comment Appears Adequate; Polychromasia SLIGHT = 2-3 cells (100X) (0-2/hpf); White Blood Cell (WBC) Count 6.8 10x3/uL (4.8-10.8)
[2022-09-27 12:00] VITALS: BP 119/77; TEMP 98.5
== END 2022-09-27 15:42 | disposition home or self-care (01) | DRG 811 ==
LOC: ERS 16:34 → SURG B 21:59 → OBSVTOIN 09-24 15:19 → UNDODISIN 09-24 16:30
PROVIDERS: ADMIT Hospitalist; ATTEND Internal Medicine
PROC: 8E0ZXY6 Isolation (ICD-10-PCS; 2022-09-24)
PROC: 30233N1 Transfusion of Nonautologous Red Blood Cells into Peripheral Vein, Percutaneous Approach (ICD-10-PCS; principal; 2022-09-25)
DX: D58.9 Hereditary hemolytic anemia, unspecified (principal); U07.1 COVID-19; N73.9 Female pelvic inflammatory disease, unspecified; L50.9 Urticaria, unspecified; E03.9 Hypothyroidism, unspecified; Z79.890 Hormone replacement therapy; Z79.52 Long term (current) use of systemic steroids; D69.6 Thrombocytopenia, unspecified
CPT/HCPCS: 36415; 36430; 71045; 74177; 80048; 80053; 81003; 81015; 82248; 82728; 83010; 83540; 83550; 83615; 83690; 83735; 84478; 84703; 85025; 85046; 85379; 85384; 85610; 85730; 86850; 86860; 86870; 86880; 86900; 86901; 86905; 86922; 86970; 96365; 96375; 96376; G0378; J2405; J2916; J3490; J7512; P9016; Q9967; S0028

== ENCOUNTER 2025-03-26 19:01 | Emergency (ER) | payer SELFPAY ==
[~2025-03-26 19:01] MED LIST changes: +Iopamidol 370 76% 100 ML VIAL ONE; -Iopamidol-370 76% 500 ML MDV (1 ML CHARGE) ONE
[2025-03-26 20:13] LABS: Hematocrit 36.9 % (36.0-47.0); Hemoglobin 11.5 g/dL (12.0-16.0); Mean Corpuscular Hemoglobin 25.7 pg (27.0-31.0); Mean Corpuscular Volume 82.4 fL (78.0-98.0); Platelet Count 168 10x3/uL (130-400); Red Blood Cell (RBC) Count 4.48 mill/uL (4.20-5.40); White Blood Cell (WBC) Count 12.62 10x3/uL (4.8-10.8)
[2025-03-26 20:28] LABS: ALT (SGPT) 37 U/L (Less than 34); AST (SGOT) 37 U/L (11-34); Albumin 4.4 g/dL (3.1-4.5); Alkaline Phosphatase 100 U/L (40-110); Anion Gap 14 mmol/L (10-20); BUN (Urea Nitrogen) 11 mg/dL (7.0-18.7); Bilirubin, Total 0.5 mg/dL (0.3-1.2); Calc. Creatinine Clearance 0 mL/min (70-130); Calcium 9.5 mg/dL (7.8-10.44); Carbon Dioxide 27 mmol/L (22-29); Chloride 105 mmol/L (98-107); Globulin 3.3 g/dL (2.4-3.5); Glucose 107 mg/dL (70-105); Potassium 4.0 mmol/L (3.5-5.1); Sodium 142 mmol/L (136-145)
[2025-03-26 20:41] LABS: Macrocytosis SLIGHT = 6-15 cells HPF (0-5); Microcytosis SLIGHT = 6-15 cells HPF (0-5); Ovalocytes SLIGHT = 2-5 cells HPF (0-1); Platelet Adequacy Comment Platelets Normal; Polychromasia SLIGHT = 2-3 cells HPF (0-2); Smudge Cells 4.0 %
[2025-03-26 20:42] LABS: BHCG - Serum Negative (NEGATIVE); Pregs Control Background? CLEAR/WHITE (CLR/WHITE); Pregs Control Bar Appear? YES (CONTROL BAR)
[2025-03-26 20:51] LABS: CK (CPK) 95 U/L (29-168); Lipase 14 U/L (8-78)
== END 2025-03-26 23:41 | disposition home or self-care (01) ==
LOC: ERS 19:01
DX: R55 Syncope and collapse (principal); E03.9 Hypothyroidism, unspecified; Z79.890 Hormone replacement therapy
CPT/HCPCS: 36415; 71045; 71275; 80053; 82550; 83690; 84443; 84703; 85025; 93005; Q9967